=== PATIENT | female | born 1940 | race Caucasian/White ===

== ENCOUNTER 2020-01-04 07:54 | Inpatient (IN) ==
[2019-12-27 19:05] LABS: Appearance,Urine CLEAR; Bacteria,Urine 0 /hpf (0); Bilirubin,Urine NEG (NEG); Color,Urine YELLOW; Culture Indicated,Urine NO; Glucose,Urine (UA) NEGATIVE (NEG); Ketones,Urine 5/TR mg/dL (NEG); Leukocyte Esterase,Urine 25 /uL (NEG); Mucus,Urine FEW /hpf (0); Nitrate,Urine NEG (NEG); Protein,Urine NEG (NEG); Specific Gravity,Urine 1.018 (1.000-1.035); Urine Blood NEG mg/dL (<0.03); Urine Hyaline Cast 2 /lpf (0-2); Urine RBC 5 /hpf (0-1); Urine Squamous Epithelial Cell < 1 /hpf (0-4); Urine Transitional Epi Cells < 1 /hpf (0-2); Urine WBC 2 /hpf (0-4); Urobilinogen,Urine NEG (NEG)
[2019-12-27 20:53] LABS: Basophils # (Auto) 0.02 K/mcL (0.00-0.30); Basophils % (Auto) 0.2 % (0.0-2.0); Eosinophils # (Auto) 0.11 K/mcL (0.00-0.70); Eosinophils % (Auto) 1.2 % (0.0-7.0); Granulocytes % (Auto) 76.1 % (38.0-78.0); Hematocrit 39.7 % (34.1-44.9); Lymphocytes % (Auto) 13.7 % (15.5-49.0); Mean Corpuscular HGB Conc 32.7 g/dL (31.0-36.0); Mean Platelet Volume 9.4 fL (7.4-10.4); Monocytes # (Auto) 0.83 K/mcL (0.10-0.90); Monocytes % (Auto) 8.8 % (1.0-12.0); Platelet Count 351 K/mcL (140-440); RBC 4.05 M/mcL (3.59-5.38); Red Cell Distribution Width 12.4 % (11.5-14.5); WBC 9.5 K/mcL (4.50-11.00)
[2019-12-27 21:05] LABS: Blood Urea Nitrogen 20 mg/dl (8-23); Calcium 10.6 mg/dl (8.6-10.4); Carbon Dioxide 27 mmol/L (22-30); Chloride 96 mmol/L (96-108); Glomerular Filtration Rate 69; Glucose 112 mg/dL (70-105)
[2019-12-27 21:26] LABS: INR 0.9 (0.9-1.1); Prothrombin Time 12.9 sec (11.9-14.5)
[2019-12-27 21:30] LABS: Estimated Average Glucose(eAG) 143 mg/dL; Hemoglobin A1C 6.6 % HGB (4.0-6.0)
[~2020-01-04 07:54] MED LIST: 0.9 % SODIUM CHLORIDE 9 ML, KETOROLAC 30 MG, ROPIVACAINE HCL/PF 49.5 ML, EPINEPHrine 0.... IJ SCH; ACETAMINOPHEN 500 MG TABLET PO SCH; CELECOXIB 200 MG CAPSULE PO SCH; IPRATROPIUM/ALBUTEROL 3 ML AMPUL.NEB NEB PRN; PREGABALIN 75 MG CAPSULE PO SCH; SCOPOLAMINE 1 PATCH PATCH TOPICAL PRN; ceFAZolin 2 GM in DEXTROSE 5% IN WATER 50 ML IV SCH; oxyCODONE 10 MG TAB.ER.12H PO SCH
[2020-01-04] MEDS ORDERED: PHENYLEPHRINE 10 MG/ML VIAL IV ONE (10:08)
[2020-01-04] MEDS ORDERED: MIDAZOLAM 5 MG/5 ML VIAL IV ONE (10:08)
[2020-01-04] MEDS ORDERED: PROPOFOL 200 MG/20 ML VIAL IV ONE (10:08)
[2020-01-04] MEDS ORDERED: KETAMINE 100 MG/ML ML IV ONE (10:08)
[2020-01-04] MEDS ORDERED: TRANEXAMIC ACID 1,000 MG/10 ML VIAL IV ONE (10:08)
[2020-01-04] MEDS ORDERED: GLYCOPYRROLATE 0.2 MG/ML VIAL IV ONE (10:08)
[2020-01-04] MEDS ORDERED: LIDOCAINE HCL/PF 100 MG/5 ML SYRINGE IV ONE (10:08)
[2020-01-04] MEDS ORDERED: DEXAMETHASONE 10 MG/ML VIAL IV ONE (10:08)
[2020-01-04] MEDS ORDERED: ONDANSETRON 4 MG/2 ML VIAL IV ONE (10:08)
[2020-01-04] MEDS ORDERED: GENTAMICIN SULFATE 800 MG/20 ML VIAL IR ONE (10:39)
[2020-01-04] MEDS ORDERED: fentaNYL 100 MCG/2 ML VIAL IV PRN (11:08)
[2020-01-04] MEDS ORDERED: IPRATROPIUM/ALBUTEROL 3 ML AMPUL.NEB NEB PRN (11:08)
[2020-01-04] MEDS ORDERED: MEPERIDINE 25 MG/ML SYRINGE IV PRN (11:08)
[2020-01-04] MEDS ORDERED: ONDANSETRON 4 MG/2 ML VIAL IV PRN ×2 (11:08→11:22)
[2020-01-04] MEDS ORDERED: METHOCARBAMOL 1,000 MG/10 ML VIAL IV PRN (11:08)
[2020-01-04] MEDS ORDERED: LACTATED RINGERS 1,000 ML IV SCH (11:15)
[2020-01-04] MEDS ORDERED: BENZOCAINE/MENTHOL 1 LOZENGE PO PRN (11:22)
[2020-01-04] MEDS ORDERED: ACETAMINOPHEN 325 MG TABLET PO PRN (11:22)
[2020-01-04] MEDS ORDERED: MAGNESIUM HYDROXIDE 30 ML ORAL.SUSP PO PRN (11:22)
[2020-01-04] MEDS ORDERED: HYDROmorphone 2 MG/ML VIAL IV PRN (11:22)
[2020-01-04] MEDS ORDERED: KETOROLAC 15 MG/ML VIAL IV PRN (11:22)
[2020-01-04] MEDS ORDERED: BISACODYL 10 MG SUPP.RECT PR PRN (11:22)
[2020-01-04] MEDS ORDERED: FLEETS ADULT ENEMA PR PRN (11:22)
[2020-01-04] MEDS ORDERED: POLYETHYLENE GLYCOL 3350 17 GM PACKET PO PRN (11:22)
[2020-01-04] MEDS ORDERED: TRANEXAMIC ACID 1,000 MG/10 ML VIAL IV SCH (11:22)
--- NOTE | 2020-01-04 11:22 | Brief Operative Note ---
Date of procedure: 01/04/20 Pre-op diagnosis: Left hip severe djd Post-op diagnosis: same Procedure: Left KENIA Grafts/Implants: Yes Anesthesia: GETA Complications: none Surgeon: Steven Rahman Auditor/Quality: Juan M Copeland Estimated blood loss (cc): 100 Specimens Removed/Pathology: none sent Condition: stable Disposition: PACU
--- NOTE | 2020-01-04 12:28 | XRay Report ---
HISTORY: Postop left hip replacement FINDINGS: There is a well-positioned left total hip prosthesis. There is no fracture or abnormal soft tissue calcification around the joint. Disc space narrowing and arthritis are present in the lower lumbar spine. Mild osteoarthritis is seen in the right hip. IMPRESSION: Well-positioned left hip prosthesis Interpreted and Authenticated by: Amarjit Siddiqui 01/04/20
--- NOTE | 2020-01-04 12:33 | Operative Note ---
DATE OF OPERATION: 01/04/2020 PREOPERATIVE DIAGNOSES: Left hip degenerative arthritis, severe. POSTOPERATIVE DIAGNOSIS: Left hip degenerative arthritis, severe. PROCEDURE: Left total hip arthroplasty. SURGEON: Steven Rahman MD [employer] OPERATOR: Juan M Copeland PA-C. This provider's expertise and technical skill were required throughout the case. The PA assisted with preoperative coordination, intraoperative retraction, wound closure, dressing and splint application, as well as postoperative documentation and care coordination. ANESTHESIA: General LMA anesthesia. COMPLICATIONS: None. ESTIMATED BLOOD LOSS: 100 mL IMPLANTS: A size 13 stem porous ingrowth with a cementless cup with one 30 mm screw and a hooded liner for a 36 mm ceramic ball. Components were [employer] DESCRIPTION OF PROCEDURE: The patient was brought to the operating room and put to sleep with general LMA anesthesia. Once asleep, the patient had the left hip sterilely prepped and draped in the usual sterile fashion. Once this was accomplished, we were able to confirm the operative site by initials, consent form and x-rays. We then positioned the patient in a right lateral position and Ioban was placed over the skin after being sterilely prepped and draped. A superior approach was made. Once done, we identified the superior capsule which was released and dislocated the hip to foot superiorly. We made our neck cut at approximately 27 mm in length. We were able to then sublux the hip anteriorly, reamed up the acetabulum after removing the labrum up to the size of 50. A 50 cup was placed with a 30 mm screw. Once this was accomplished, I then placed a hooded liner for 36 mm ball. The patient then had the femur broached up to the size 13. We trialed the size 13 after calcar reaming, establishing depth and then took an x-ray with a neutral neck length. The left leg was slightly longer given the x-ray. With this, we were able to then adjust the stem and placed a small amount of cement on a cementless stem distally just to hold the fixation given the soft bone. We placed the stem in 15 degrees of anteversion; a +3 neck length was used because we were able to countersink the stem slightly, and then relocated the hip. This made it stable up to 90 degrees of rotation. We irrigated thoroughly and then placed the final 3 mm ceramic ball with a 36 mm head into the cup. We closed the capsule with #1 Ethibond, closed the fascial layer with #1 Stratafix and the skin was closed with Stratafix and adhesive closure. The patient tolerated this well. There were no complications. Blood loss was 100 mL. Preop antibiotics and tranexamic acid were given.. [email or web address] Job ID: [id number] Doc ID: [id number] Steven Rahman MD
[2020-01-04] MEDS: 0.9 % SODIUM CHLORIDE 10 ML SYRINGE IV SCH ×2 (15:43→23:08)
[2020-01-04] MEDS: LACTATED RINGERS 1,000 ML IV SCH ×2 (15:43→23:09)
[2020-01-04] MEDS: ceFAZolin 1 GM VIAL IV SCH (17:28)
[2020-01-04] MEDS ORDERED: TEMAZEPAM 15 MG CAPSULE PO PRN (21:00)
[2020-01-04] MEDS: HYDROcodone/APAP 10/325MG TABLET PO PRN (23:07)
[2020-01-04] MEDS: ASPIRIN 325 MG ENTERIC COATED TABLET PO SCH (23:07)
[2020-01-04] MEDS: DOCUSATE SODIUM 100 MG CAPSULE PO SCH (23:07)
[2020-01-04] MEDS: SENNOSIDES 1 TABLET PO SCH (23:09)
[2020-01-05] MEDS: ceFAZolin 1 GM VIAL IV SCH (01:46)
[2020-01-05] MEDS: HYDROcodone/APAP 10/325MG TABLET PO PRN ×3 (04:59→18:24)
[2020-01-05] MEDS: 0.9 % SODIUM CHLORIDE 10 ML SYRINGE IV SCH ×3 (05:00→20:14)
[2020-01-05] MEDS: LACTATED RINGERS 1,000 ML IV SCH (09:16)
--- NOTE | 2020-01-05 09:18 | Orthopedic Progress Note ---
Subjective Patient information: Note initiated : 01/05/20 at 9:15 am Service Date, if different from initiated Date: [] Patient: Parris Quevedo 79 y/o F admitted on 01/04/20 for Left Total Hip Arthroplasty . Chief Complaint: [no cp and no sob but only walked a few feet but is eating well and pain is decreased to 2-3] Principal diagnosis: left total hip Objective Vital signs: Vital Signs Temp Pulse Resp BP Pulse Ox 01/05/20 08:00 98.0 F 70 16 126/70 97 01/05/20 06:00 94 01/05/20 04:00 97.7 F 68 16 122/70 95 01/05/20 02:00 94 01/05/20 00:00 94 01/04/20 23:26 98.1 F 74 18 124/67 97 01/04/20 22:00 94 01/04/20 20:00 95 01/04/20 19:21 98.1 F 77 16 125/67 96 01/04/20 17:15 93 01/04/20 16:00 98.9 F 71 18 138/78 93 01/04/20 14:00 99 01/04/20 12:15 97.0 F 73 14 137/65 99 01/04/20 12:00 78 12 132/67 99 01/04/20 11:45 78 17 117/62 100 01/04/20 11:30 97.3 F 84 10 L 146/62 100 Intake and Output 01/04/20 01/05/20 01/05/20 21:59 05:59 13:59 Intake Total 120 1187 Output Total 551 1000 Balance -431 187 Intake: IV 647 Lactated Ringers 1,000 ml @ 100 647 mls/hr IV .Q10H [facility] Rx#: [id number] Oral 120 540 Output: Void Amount 550 1000 # of times incontinent of urine 1 Other: Meal Nourishment/Supplement Dinner Percent of Meal Consumed 100% 100% Feeding Ability Independent Urine Appearance Clear Urine Color Bright Yellow Weight 186 lb 4.8 oz Intake & Output: Intake & Output 01/04/20 01/05/20 01/05/20 21:59 05:59 13:59 Intake Total 120 1187 Output Total 551 1000 Balance -431 187 Weight 186 lb 4.8 oz Intake: IV 647 Lactated Ringers 1,000 ml @ 100 647 mls/hr IV .Q10H [facility] Rx#: [id number] Oral 120 540 Output: Void Amount 550 1000 # of times incontinent of urine 1 Other: Meal Nourishment/Supplement Dinner Percent of Meal Consumed 100% 100% Feeding Ability Independent Urine Appearance Clear Urine Color Bright Yellow Incision: Yes healing Incision clean and dry: Yes Dressing: Yes clean Weight bearing status: as tolerated Neurological exam IM: Yes alert, Yes oriented X3, Yes neurovascular intact Extremities exam IM: Yes joint swelling, Yes Foot pink and warm, Yes neurovascular intact - Periperhal Pulses Peripheral pulses: 1+: dorsalis pedis (L), dorsalis pedis (R) - [facility] Allied health notes reviewed: PT (Plan is to do PT and evaluate for snf or home health dc) - Labs CBC & BMP: 01/05/20 05:45 12/27/19 16:51 Labs: Orthopedic Labs 12/27/19 16:50 PT 12.9 INR 0.9 01/05/20 12/27/19 05:45 16:51 Hgb 13.0 Hct 31.8 L 39.7
[2020-01-05] MEDS: DOCUSATE SODIUM 100 MG CAPSULE PO SCH ×2 (10:37→20:13)
[2020-01-05] MEDS: ASPIRIN 325 MG ENTERIC COATED TABLET PO SCH ×2 (10:37→20:14)
[2020-01-05] MEDS: SENNOSIDES 1 TABLET PO SCH (20:13)
[2020-01-06] MEDS: HYDROcodone/APAP 10/325MG TABLET PO PRN ×5 (03:12→21:41)
[2020-01-06] MEDS: 0.9 % SODIUM CHLORIDE 10 ML SYRINGE IV SCH ×3 (06:13→20:05)
[2020-01-06] MEDS: DOCUSATE SODIUM 100 MG CAPSULE PO SCH ×2 (10:05→20:05)
[2020-01-06] MEDS: ASPIRIN 325 MG ENTERIC COATED TABLET PO SCH ×2 (10:05→20:04)
[2020-01-06] MEDS: LACTATED RINGERS 1,000 ML IV SCH (18:49)
[2020-01-06] MEDS: SENNOSIDES 1 TABLET PO SCH (20:04)
[2020-01-07] MEDS: HYDROcodone/APAP 10/325MG TABLET PO PRN ×3 (01:51→12:49)
[2020-01-07] MEDS: 0.9 % SODIUM CHLORIDE 10 ML SYRINGE IV SCH (05:37)
[2020-01-07] MEDS: ASPIRIN 325 MG ENTERIC COATED TABLET PO SCH (07:48)
[2020-01-07] MEDS: DOCUSATE SODIUM 100 MG CAPSULE PO SCH (07:48)
--- NOTE | 2020-01-07 10:39 | Discharge Summary ---
Ortho Discharge - [facility] - Patient Instructions Diet: Regular Diet Activity: activity as tolerated, weight bearing as tolerated Total Hip Protocol: Follow activity instructions as provided by Physical Therapy. Dressing Care: May shower in 2 days - Follow Up Plan Follow Up Appointments: Juan M Copeland PA-C [Physician Marketing Researcher] - 01/17/20 10:40 am Disposition: Xfer SNF Care Plan Goals: ambulate Prognosis: Good Rehab Potential: Good I certify that the patient requires SNF services: Yes Overall status at discharge: patient is progressing back to baseline - Orders For Discharge Prescriptions: HYDROcodone/APAP 10/325MG [Eckerman 10-325Mg] 10 - 20 mg PO Q4HP PRN #30 tab PRN Reason: Per Pain Protocol Prescription Printed Additional Discharge Orders: Physical Therapy at Discharge - [facility] Location: None Selected Toilet Riser Discharge Order Location: None Selected Walker Location: None Selected
== END 2020-01-07 13:50 | DRG 470 ==
LOC: MEDSUROUT 07:54 → MEDSUR 08:00
PROVIDERS: ADMIT Orthopaedic Surgery; ATTEND Orthopaedic Surgery